=== PATIENT | female | born 1990 | race African-American/Black ===

== ENCOUNTER 2021-05-03 21:23 | Emergency (ER) | payer OTHER ==
[~2021-05-03] VITALS: Ht 157.5 cm; Wt 61.2 kg
--- NOTE | ~2021-05-03 | EMS ---
[address] [address] EMS Patient Care Report Name: KAITLYN FRIEDMAN Room #: PRE M.R.#: [id number] Admission: Attend Phys: Discharge: Date of : [birth year] Report #: [id number] THIS REPORT FOR: //name// Report Transmitted: 05/03/2021 21:05 EMS Care Summary [facility] MED-ACT Incident [id number] @ 05/03/2021 20:41 Incident Location [address] [place] [address] Patient KAITLYN FRIEDMAN Female, 31 Years 1990 Patient Address [address] [place] [address] [place] [address] Patient History None Reported, Patient Allergies Other drug allergy, Patient Medications None Reported, Chief Complaint dizzy Disposition Transported No Lights/[place] Reason Sick Person Transported To [facility] Narrative Dispatched to the above location for a reported syncopal episode. Arrived on scene to find pt. lying supine on sofa, AOx4, no apparent distress. Pt. working as home health aide, stated that while she was assisting her pt. in getting ready for bed she had a sudden onset of dizziness and thought she would "pass [address] [address] EMS Patient Care Report Name: KAITLYN FRIEDMAN Room #: PRE Neil#: [id number] Admission: Attend Phys: Discharge: Date of : [birth year] Report #: [id number] out." Pt. was helped by a coworker to the sofa, did not fall or suffer any injury. Pt. reports frequent urination, abdominal pain, and slight burning for the past several days. Pt. denied loss of appetite, changes in bowel and eating habits and chance of . Obtained VS, assisted to ambulance and helped to cot, secured with straps. Monitored pt. during transport. Biocom to ED, bedside report and transfer of care to ED staff at [facility]. Initial Vitals @20:59P: 94,SpO2: 98, @21:08P: 71,SpO2: 98, @21:07P: 73,BP: 151/82,GCS: 15,SpO2: 99, @20:50P: 94,R: 14,BP: 142/80,Pain: 4/10,GCS: 15,Temp: 98.9F,SpO2: 98,Revised Trauma: 12, Assessments @20:50MENTAL:Person Oriented,Time Oriented,Place Oriented,Event Oriented,SKIN:HEENT:Eyes: No Abnormalities,LUNG SOUNDS:Left Upper: Other,Right Upper: Other,ABDOMEN:Left Upper: Other,Right Upper: Other,PELVIS//GI:EXTREMITIES:PULSE:NEURO: Impression Urinary Tract Infection (UTI) Procedures @21:15Surgical Mask on PatientResponse: Unchanged Timeline 20:40,Call Received 20:40,Psap Call 20:41,Dispatched 20:42,En Route 20:45,On Scene 20:49,At Patient 20:50,BP: 142/80 M,PULSE: 94,RR: 14 R,SPO2: 98 Ox,ETCO2: ,BG: ,PAIN: 4,GCS: 15, 20:59,BP: / M,PULSE: 94,RR: R,SPO2: 98 Ox,ETCO2: ,BG: ,PAIN: ,GCS: , 21:01,Depart Scene 21:07,BP: 151/82 M,PULSE: 73,RR: R,SPO2: 99 Ox,ETCO2: ,BG: ,PAIN: ,GCS: 15, 21:08,BP: / M,PULSE: 71,RR: R,SPO2: 98 Ox,ETCO2: ,BG: ,PAIN: ,GCS: , 21:15,Surgical Mask on Patient,Response: Unchanged 21:19,At Destination 21:37,Call Closed Disclaimer v1.1 Copyright 2020 [employer] [address] [address] EMS Patient Care Report Name: KAITLYN FRIEDMAN Room #: PRE M.R.#: [id number] Admission: Attend Phys: Discharge: Date of : [birth year] Report #: [id number] This EMS Care Summary contains data elements from the applicable legal record (which may be displayed differently). It is designed to provide pertinent information for the following purposes: continuity of care, clinical quality, and state data reporting. The complete legal record is available to ED staff and administrators of the receiving hospital in [employer]'s Patient Tracker. All data is provided "as is."
[2021-05-03 21:40] LABS: ABSOLUTE NEUTROPHILS 9.9 thou/uL (1.4-8.2); BASOPHILS 0.3 % (0.0-2.0); HEMATOCRIT 36.9 % (37.0-47.0); HEMOGLOBIN 12.4 gm/dL (12.0-15.0); LYMPHOCYTES 16.1 % (24.0-44.0); MCH 30.1 pg (26.0-34.0); MCHC 33.6 g/dL (28.0-37.0); MCV 89.6 fL (80.0-100.0); MONOCYTES 6.7 % (1.0-8.0); PLATELET COUNT 381 thou/uL (150-400); POLYS 74.9 % (36.0-66.0); RBC 4.12 mil/uL (4.20-5.00); RDW 13.3 % (10.5-14.5); WBC 13.2 thou/uL (4.0-11.0)
[2021-05-03 21:46] LABS: ANION GAP 9 mmol/L (7-16); BUN 11 mg/dL (7-18); CALCIUM 8.8 mg/dL (8.5-10.1); CHLORIDE 107 mmol/L (98-107); CO2 26 mmol/L (21-32); CREATININE 0.7 mg/dL (0.6-1.0); GLUCOSE 98 mg/dL (74-106); POTASSIUM 3.8 mmol/L (3.5-5.1); SODIUM 142 mmol/L (136-145)
[2021-05-03 21:55] LABS: TROPONIN-I <0.06 ng/mL (<0.06)
[2021-05-03 22:09] LABS: URINE BILIRUBIN NEGATIVE (Negative); URINE BLOOD NEGATIVE (Negative); URINE CLARITY CLEAR; URINE COLOR YELLOW; URINE GLUCOSE-RANDOM* NEGATIVE (Negative); URINE KETONES NEGATIVE (Negative); URINE LEUKOCYTES-REFLEX TRACE (Negative); URINE NITRITE-REFLEX NEGATIVE (Negative); URINE PROTEIN (DIPSTICK) NEGATIVE (Negative); URINE SPECIFIC GRAVITY <= 1.005 (1.005-1.035); URINE UROBILINOGEN 0.2 E.U./dl (0.2-1.0)
[2021-05-03 23:20] VITALS: BP 125/68
--- NOTE | 2021-05-04 07:22 | EKG ---
[address] [address] ELECTROCARDIOGRAM REPORT Name: KAITLYN FRIEDMAN [id number] Admission: 05/03/21 Attend Phys: Discharge: 05/03/21 Date of : [birth year] Report #: [id number] [facility] ED Test Date: 2021-05-03 Test Time: 21:54:14 Pat Name: KAITLYN FRIEDMAN Department: Room: Gender: F Bus Driver Supervisor: jes : 1990 Requested By: Wilfred Porras Order Number: [id number] MD: Klaus Robins Measurements Intervals [place] Rate: 59 P: 66 IA: 116 QRS: 51 QRSD: 78 T: 17 QT: 395 QTc: 392 Interpretive Statements Sinus rhythm Borderline short IA interval No previous ECG available for comparison Electronically Signed On 05-04-2021 7:22:38 CDT by Klaus Robins [email or web address] <ELECTRONICALLY SIGNED> By: Klaus Robins MD, [facility] 05/04/21 0722 [id number] Klaus Robins MD, FACC /EPI
== END 2021-05-03 23:20 | disposition home or self-care (01) ==
LOC: ER 21:23
PROVIDERS: Nurse Practitioner
DX: R55 Syncope and collapse (principal)